=== PATIENT | male | born 1980 | race Caucasian/White ===

== ENCOUNTER 2019-06-07 11:10 | Emergency (ER) | payer SELFPAY ==
[2019-06-07] MEDS ORDERED: TORAdol 30 mg Injection IM ONE (11:31)
--- NOTE | 2019-06-07 11:31 | ERPHSYRPT ---
- History of Present Illness Time Seen by Provider: 06/07/19 11:28 Source: patient Exam Limitations: no limitations Patient Subjective Stated Complaint: pt here for right knee pain after twisitn it while going down stairs on saturday, Triage Nursing Assessment: pt alert, resp easy, skin w/d/p. no swelling or bruising noted ,was able to walk on leg Physician History: pt here for right knee pain after twisitn it while going down stairs on Saturday, Method of Injury: other (missed step) Occurred: last week Quality: constant Lower Extremities Pain: knee: right Modifying Factors: Improves With: cold therapy Associated Symptoms: none Allergies/Adverse Reactions: Penicillins Allergy (Verified 06/07/19 11:23) Hx Tetanus, Diphtheria Vaccination/Date Given: Yes Hx Influenza Vaccination/Date Given: No Hx Pneumococcal Vaccination/Date Given: No Immunizations Up to Date: No - Review of Systems Constitutional: No Symptoms Eyes: No Symptoms Ears, Nose, & Throat: No Symptoms Respiratory: No Symptoms Cardiac: No Symptoms Musculoskeletal: Fall, Joint Pain (right knee), No Deformity - Past Medical History Pertinent Past Medical History: Yes Cardiac History: Arrhythmia Musculoskeletal History: Other GI Medical History: Hepatitis Other Medical History: torn ligament left knee - Past Surgical History Past Surgical History: Yes Other Surgical History: tubes in ears, t&a - Social History Smoking Status: Current every day smoker How long have you smoked: 18 Exposure to second hand smoke: Yes Drug Use: none Patient Lives Alone: No - Nursing Vital Signs Nursing Vital Signs: Initial Vital Signs Temperature 97.2 F 06/07/19 11:15 Pulse Rate 102 H 06/07/19 11:15 Respiratory Rate 16 06/07/19 11:15 Blood Pressure 144/84 06/07/19 11:15 O2 Sat by Pulse Oximetry 96 06/07/19 11:15 Pain Scale Pain Intensity 6 - Physical Exam General Appearance: no apparent distress Eyes, Ears, Nose, Throat Exam: normal ENT inspection Neck Exam: normal inspection Legs Exam: bilateral leg: non-tender, normal inspection Knees Exam: right knee: bone tenderness, soft tissue tenderness, left knee: non- tender, normal inspection, normal range of motion, no evidence of injury SpO2: 96 - Course Nursing assessment & vital signs reviewed: Yes - Radiology Exams Knee X-ray Interpretation: Reviewed by me, Negative, No Fracture, No Subluxation Ordered Tests: Active Orders 24 hr Category Date Time Status KNEE (3 VIEWS) Stat Exams 06/07/19 11:27 Ordered Medication Summary Discontinued Medications Generic Name Dose Route Start Last Admin Trade Name Josh PRN Reason Stop Dose Admin Ketorolac Tromethamine 60 mg 06/07/19 11:31 06/07/19 11:34 Toradol 30 Mg Injection IM 06/07/19 11:32 60 mg STAT ONE Administration Ketorolac Tromethamine Confirm 06/07/19 11:33 Toradol 30 Mg Injection Administered 06/07/19 11:34 Dose 60 mg .ROUTE .STK-MED ONE - Progress Progress: improved, pain not gone completely Counseled pt/family regarding: diagnosis, need for follow-up, rad results - Departure Departure Disposition: Home Clinical Impression: Right knee pain Qualifiers: Chronicity: acute Qualified Code(s): M25.561 - Pain in right knee Condition: Stable Critical Care Time: No Referrals: DOCTOR,NO FAMILY [Primary Care Provider] - Instructions: Knee Pain (DC) Additional Instructions: SPRAINS/STRAINS/CONTUSIONS 1. Rest the affected area as much as possible for the next few days. 2. Apply ice to the affected area for 20-30 minutes at a time, several times a day. 3. If you receive an elastic wrap, wear it only while awake for comfort and support. Re-wrap the elastic wrap if it feels too tight or too loose. 4. If swelling is present, elevate the affected part above the level of the heart for at least 2 to 3 days. 5. Use splints, slings, or crutches as instructed. 6. Watch for severe swelling, coldness, numbness, and discoloration of the fingers and toes. See your family physician or return to the emergency department if any of these are noted. NABEEL VELASQUEZ was seen on 06/07/19 n the Emergency Room. At that time you were treated for an emergent condition, during your visit Laboratory, Radiology and/or other procedures may have been ordered. It is very important that you follow-up with your Primary Care Physician NO FAMILY DOCTOR within the next 24-48 hours to review your Emergency Room visit and the final results of testing that was ordered. Some test results such as Urine Cultures, Blood Cultures, and other cultures if ordered will not be finalized for 24-48 hours. If you do not have a Primary Care Provider please call the medical records department at [phone] ext [phone] to obtain a copy of your results or you may sign into our patient portal to obtain these results by visiting us @ [email or web address] and completing the following steps: 1. Click on the Patient Portal link 2. Click the Patient Self Enrollment Link to complete the enrollment form and entering your 3. Once the enrollment form is completed you will receive an email with a temporary ID and password at the email address you provided. 4. Next choose a user name and password. Your user name must be at least 4 characters long and your password must be at least 4 characters long. 5. Choose a security question from the list and provide your answer to the question. If you already have signed into the Health Portal you may access your Health Care Information 18/03 by the following steps: 1. Login to our website @ [email or web address] 2. Enter your original user name and password. FAQS The [facility] Health Portal is an online tool that contains your Lab Results, Radiology Reports, Visit History, Discharge Instructions and Health Summary Lab and Radiology Results will not be available for 72 hours on the portal. The Portal is a secure site, passwords are encryted and URLs are re-written so they cannot be copied and pasted. You and authorized family members are the only ones who can access your Portal. Also there is a timeout feature that protects your information if you leave the Portal page open. If you have technical difficulty please use the Contact Us link on the page this will allow you to submit any questions you have regarding the Portal or you may contact the Medical Record Department at [phone] ext [phone]. Discharge/Care Plan NABEEL VELASQUEZ was seen on 06/07/19 in the Emergency Room. The patient was counseled regarding Diagnosis,Lab results, Imaging studies, need for follow up and when to return to the Emergency Room. Prescriptions given: Discharge Note I have spoken with the patient and/or caregivers. I have explained the patient' s condition, diagnosis and treatment plan based on the information available to me at this time. I have answered the patient's and/or caregiver's questions and addressed any concerns. The patient and/or caregivers have as good understanding of the patient's diagnosis, condition and treatment plan as can be expected at this point. The vital signs have been stable. The patient's condition is stable and appropriate for discharge from the emergency department. The patient will pursue further outpatient evaluation with the primary care physician or other designated or consulting physician as outlined in the discharge instructions. The patient and/or caregivers are agreeable to this plan of care and follow-up instructions have been explained in detail. The patient and/or caregivers have received these instruction. The patient/and or caregivers are aware that any significant change in condition or worsening of symptoms should prompt an immediate return to this or the closest emergency department or call 911. Prescriptions: Naproxen 375 mg [Naprosyn 375 mg] 375 mg PO Q8H #30 tablet
[2019-06-07] MEDS ORDERED: TORAdol 30 mg Injection ONE (11:33)
[2019-06-07 12:30] VITALS: BP 128/87; PULSE 70; O2SAT 98
--- NOTE | 2019-06-07 20:54 | XRAY ---
Indication: Pain following injury one week ago. Comparison: None 3 views of the right knee demonstrates small nonspecific suprapatellar effusion. No other bony, articular, or soft tissue abnormalities.
== END 2019-06-07 12:30 | disposition home or self-care (01) ==
LOC: ED 11:10
DX: M25.561 Pain in right knee (principal); X50.1XXA Overexertion from prolonged static or awkward postures, initial encounter; Y93.89 Activity, other specified; Y92.89 Other specified places as the place of occurrence of the external cause; K75.9 Inflammatory liver disease, unspecified
CPT/HCPCS: 73562; 96372; 99284; J1885

== ENCOUNTER 2019-07-15 08:46 | Emergency (ER) | payer SELFPAY ==
[2019-07-15] MEDS ORDERED: TORAdol 30 mg Injection IM ONE (09:10)
--- NOTE | 2019-07-15 09:17 | ERPHSYRPT ---
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 Triage Nursing Assessment: pt arrives p/w/d resp easy a@ox3 states pain of 8 to left lebow at all times pt cmpts wnl Physician History: 39 years old generally healthy male presented in the ER the chief complaint of LEFT ELBOW PAIN INTERMITTENTLY FOR ONE MONTH. Patient REPORTS LIFTING HEAVY PIECES OF WOOD REPEATEDLY AND HEARD A POPPING SOUND ALMOST A MONTH AGO AND SINCE THEN IS HAVING DULL ACHING SHARP PAIN OF MODERATE INTENSITY BUT MOVEMENTS OF THE ELBOW AND BETTER WITH RESTING. hE HAS NOT BEEN USING HIS LEFT ARM THAT FREQUENTLY SINCE THEN. tODAY HE WAS TAKING OUT DOWN A METAL FROM THE REFRIGERATOR AND BECAUSE OF PAIN DROPPED IT. dENIES ANY SWELLING IN THE ELBOW OR DIRECT TRAUMA. pAIN RADIATES TO UPPER FOREARM FROM ELBOW BUT HAS NO WEAKNESS IN THE HAND/ARM. nO NUMBNESS IN THE HAND. Quality: intermittent Severity of Pain-Max: moderate Severity of Pain-Current: moderate Extremities Pain Location: elbow: left Modifying Factors: Improves With: movement Allergies/Adverse Reactions: Penicillins Allergy (Verified 07/15/19 09:01) Home Medications: Famotidine 20 mg [Pepcid 20 MG] 20 mg PO DAILY 07/15/19 [History] Hx Tetanus, Diphtheria Vaccination/Date Given: Yes Hx Influenza Vaccination/Date Given: No Hx Pneumococcal Vaccination/Date Given: No - Review of Systems Constitutional: No Symptoms Ears, Nose, & Throat: No Symptoms Respiratory: No Symptoms Cardiac: No Symptoms Abdominal/Gastrointestinal: No Symptoms Genitourinary Symptoms: No Symptoms Neurological: No Symptoms Endocrine: No Symptoms Hematologic/Lymphatic: No Symptoms - Past Medical History Pertinent Past Medical History: Yes Cardiac History: Arrhythmia Musculoskeletal History: Other GI Medical History: Hepatitis Other Medical History: torn ligament left knee - Past Surgical History Past Surgical History: Yes Other Surgical History: tubes in ears, t&a - Social History Smoking Status: Current every day smoker How long have you smoked: 18 Exposure to second hand smoke: Yes Drug Use: none Patient Lives Alone: No - Nursing Vital Signs Nursing Vital Signs: Initial Vital Signs Temperature 98.5 F 07/15/19 08:54 Pulse Rate 81 07/15/19 08:54 Respiratory Rate 18 07/15/19 08:54 Blood Pressure 127/69 07/15/19 08:54 O2 Sat by Pulse Oximetry 97 07/15/19 08:54 Pain Scale Pain Intensity 8 - Physical Exam General Appearance: no apparent distress Eyes, Ears, Nose, Throat Exam: normal ENT inspection Neck Exam: normal inspection, non-tender, supple, full range of motion Cardiovascular/Respiratory Exam: chest non-tender, normal breath sounds, regular rate/rhythm Back Exam: normal inspection, normal range of motion Shoulder Exam: normal inspection, non-tender, no evidence of injury Elbow/Forearm Exam: normal inspection, no evidence of injury, normal ROM, bone tenderness (at olecranon area left elbow ), pain, No swelling Wrist Exam: normal inspection, non-tender, no evidence of injury, normal ROM Hand Exam: normal inspection, non-tender, no evidence of injury, normal ROM DTR - Upper Extremity Exam: bicep (R): 2+, bicep (L): 2+, tricep (R): 2+, tricep (L): 2+ Neuro/Tendon Exam: normal sensation, normal motor functions, normal tendon functions Mental Status Exam: alert, oriented x 3, cooperative Skin Exam: normal color SpO2 Interpretation: normal SpO2: 97 O2 Delivery: Room Air - Course Nursing assessment & vital signs reviewed: Yes Ordered Tests: Active Orders 24 hr Category Date Time Status ELBOW (MINIMUM 3 VIEWS) Stat Exams 07/15/19 09:27 Completed Medication Summary Discontinued Medications Generic Name Dose Route Start Last Admin Trade Name Josh PRN Reason Stop Dose Admin Ketorolac Tromethamine 30 mg 07/15/19 09:10 07/15/19 09:23 Toradol 30 Mg Injection IM 07/15/19 09:11 30 mg STAT ONE Administration Ketorolac Tromethamine Confirm 07/15/19 09:19 Toradol 30 Mg Injection Administered 07/15/19 09:20 Dose 30 mg .ROUTE .STK-MED ONE - Progress Progress: improved Progress Note: he is given Toradol, and evaluation pain is better. X-rays negative for fracture dislocation. I believe the patient has tennis elbow because of repeated use.I will start him on diclofenac and have him followup operation with primary care and also it does not feel much improvement in 2 weeks' time. 07/15/19 10:28 Counseled pt/family regarding: diagnosis, need for follow-up, rad results - Departure Departure Disposition: Home Clinical Impression: Left tennis elbow Condition: Stable Critical Care Time: No Referrals: DOCTOR,NO FAMILY [Primary Care Provider] - JUDSON MUNSON DO [ACTIVE STAFF] - Follow Up with PCP/3 days Instructions: Elbow Sprain (DC) Additional Instructions: take Tylenol/diclofenac as needed. Followup with primary care for reevaluation. If do not feel any improvement you may need referral for Ortho. Return to the ER for any worsening. Prescriptions: Diclofenac Sodium 75 mg PO BIDPRN PRN #30 tablet.dr DUARTE Reason: Pain
[2019-07-15] MEDS ORDERED: TORAdol 30 mg Injection ONE (09:19)
--- NOTE | 2019-07-15 09:59 | XRAY ---
Indication: Pain following injury 2 weeks ago. Comparison: None 3 views of the left elbow obtained. No bony, articular, or soft tissue abnormalities.
[2019-07-15 10:46] VITALS: BP 100/68; PULSE 72; O2SAT 98
== END 2019-07-15 10:49 | disposition home or self-care (01) ==
LOC: ED 08:46
DX: M77.12 Lateral epicondylitis, left elbow (principal); X50.3XXA Overexertion from repetitive movements, initial encounter
CPT/HCPCS: 73080; 96372; 99284; J1885

== ENCOUNTER 2019-10-01 15:07 | Emergency (ER) | payer OTHER ==
[2019-10-01] MEDS ORDERED: TYLENOL 325 MG PO ONE (15:36)
[2019-10-01] MEDS ORDERED: TYLENOL 325 MG ONE (15:41)
--- NOTE | 2019-10-01 15:59 | ERPHSYRPT ---
- History of Present Illness Time Seen by Provider: 10/01/19 15:30 Source: patient, rehabilitation caseworker Exam Limitations: no limitations Patient Subjective Stated Complaint: states a big piece of metal fell on his head at work just prior to arrival in er. denies loc Triage Nursing Assessment: amublated to room per self. skin w/d, color normal. has 1cm v-shape lac to top of head left side with minimal bleeding at this time. Physician History: Patient is a 39-year-old male presents to our ED for evaluation status post head injury. Patient was at work when he says a metal object fell from an elevated surface and landed onto the back of his head. Patient immediately began to bleed. No loss of consciousness. He was not wearing a hard hat. Injury occurred prior to arrival. Patient denies neck pain. No numbness tingling or weakness. No blurred vision. No nausea or vomiting. No other injuries. Patient ambulatory. He voices no other complaints at this time. Patient is not on blood thinners. Occurred: just prior to arrival Severity: moderate Head Injury Location: parietal (Posterior parietal) Method of Injury: direct blow Loss of Consciousness: no loss of consciousness Associated Symptoms: No nausea, No vomiting, No diaphoresis, No chest pain Allergies/Adverse Reactions: Penicillins Allergy (Verified 10/01/19 15:16) Home Medications: Famotidine 20 mg [Pepcid 20 MG] 20 mg PO DAILY 07/15/19 [History] Hx Tetanus, Diphtheria Vaccination/Date Given: No Hx Influenza Vaccination/Date Given: No Hx Pneumococcal Vaccination/Date Given: No - Review of Systems Constitutional: No Fever, No Chills Eyes: No Symptoms Ears, Nose, & Throat: No Symptoms Respiratory: No Symptoms, No Cough, No Dyspnea Cardiac: No Symptoms, No Chest Pain, No Edema, No Syncope Abdominal/Gastrointestinal: No Symptoms, No Abdominal Pain, No Nausea, No Vomiting, No Diarrhea Genitourinary Symptoms: No Symptoms, No Dysuria Musculoskeletal: No Symptoms, No Back Pain, No Neck Pain Skin: Other (There is a 0.5 cm laceration to the posterior occipital area of scalp.), No Rash Neurological: No Symptoms, No Dizziness, No Focal Weakness, No Lethargy, No Parasthesia, No Sensory Changes, No Speech Changes, No Vertigo Psychological: No Symptoms Endocrine: No Symptoms All Other Systems: Reviewed and Negative - Past Medical History Pertinent Past Medical History: Yes Cardiac History: Arrhythmia Musculoskeletal History: Other GI Medical History: Hepatitis Other Medical History: torn ligament left knee - Past Surgical History Past Surgical History: Yes Other Surgical History: tubes in ears - Social History Smoking Status: Current every day smoker How long have you smoked: 20 Exposure to second hand smoke: Yes Drug Use: none Patient Lives Alone: No - Nursing Vital Signs Nursing Vital Signs: Initial Vital Signs Temperature 97.2 F 10/01/19 15:12 Pulse Rate 91 H 10/01/19 15:12 Respiratory Rate 16 10/01/19 15:12 Blood Pressure 115/91 10/01/19 15:12 O2 Sat by Pulse Oximetry 96 10/01/19 15:12 Pain Scale Pain Intensity 0 - Bellona Coma Score Best Eye Response (Bellona): (4) open spontaneously Best Verbal Response (Michael): (5) oriented Best Motor Response (Bellona): (6) obeys commands Michael Total: 15 - Physical Exam General Appearance: no apparent distress, alert Head Injury: No no evidence of injury (There is an obvious 0.5 cm laceration of the posterior parietal area of scalp. No obvious depressed skull fracture. Neuro exam within normal limits.) Eye Exam: bilateral eye: PERRL, EOMI ENT Exam: airway nml Neck Exam: supple, full range of motion, normal inspection, No focal neuro deficit, No limited range of motion, No tenderness, No mid-line tenderness, No lymphadenopathy Cardiovascular/Respiratory Exam: chest non-tender, normal breath sounds, regular rate/rhythm Gastrointestinal/Abdominal Exam: soft, non tender, no distention Rectal Exam: deferred Back Exam: normal inspection, No vertebral tenderness Extremity Exam: non-tender, normal range of motion, normal inspection Mental Status Exam: alert, oriented x 3, 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 Exam: normal hearing, normal speech, PERRL, tongue midline, No abnormal eye position, No abnormal gag reflex, No abnormal pupil position, No abnormal speech , No facial asymmetry, No facial droop, No facial paresthesias, No facial weakness, No hearing deficit (R), No hearing deficit (L) Coordination/Gait Exam: normal finger to nose Motor/Sensory Exam: no motor deficit, no sensory deficit, CN II-XII intact Skin Exam: normal color, warm, dry, No rash SpO2 Interpretation: normal SpO2: 96 O2 Delivery: Room Air Procedures - Laceration/Wound Repair scalp Wound Location: head Wound Length (cm): 0.5 Wound's Depth, Shape: superficial Wound Explored: clean (No foreign body) Irrigated: Yes Hibiclens Prep: Yes Anesthesia: local (No anesthesia. Patient declined preferred just place staple without local.) Wound Debrided: No debridement necessary. Wound Repaired With: Chelsie (1 staple applied.) Sterile Dressing Applied?: Yes Splint Applied?: No Progress: 10/01/19 16:36 Patient reassessed. He feels well. Patient tolerated procedure well. Repeat neuro exam within normal limits. Patient requesting discharge and a work note. - CT Exams Head CT Interpretation: Other (CT scan head negative for intracranial hemorrhage. There is a laceration and a scalp hematoma.) Ordered Tests: Active Orders 24 hr Category Date Time Status Wound Care STAT Care 10/01/19 15:19 Active HEAD WITHOUT CONTRAST [CT] Stat Exams 10/01/19 15:36 Completed Medication Summary Discontinued Medications Generic Name Dose Route Start Last Admin Trade Name Josh PRN Reason Stop Dose Admin Acetaminophen 975 mg 10/01/19 15:36 10/01/19 15:42 Tylenol 325 Mg PO 10/01/19 15:37 975 mg STAT ONE Administration Acetaminophen Confirm 10/01/19 15:41 Tylenol 325 Mg Administered 10/01/19 15:42 Dose 975 mg .ROUTE .STK-MED ONE - Progress Progress: improved Will see patient in: office Counseled pt/family regarding: diagnosis, need for follow-up, rad results - Departure Departure Disposition: Home Clinical Impression: Scalp laceration, Scalp hematoma, Concussion, Head injury Condition: Good Critical Care Time: No Referrals: DOCTOR,NO FAMILY [Primary Care Provider] - JONATHAN PETERSEN [ACTIVE STAFF] - Additional Instructions: Patient may return to work once cleared to do so by his primary care physician or workman's comp. Skin stable may be removed in 1 week. Discharge/Care Plan NABEEL VELASQUEZ was seen on 10/01/19 in the Emergency Room. The patient was counseled regarding Diagnosis,Lab results, Imaging studies, need for follow up and when to return to the Emergency Room. Prescriptions given: Discharge Note I have spoken with the patient and/or caregivers. I have explained the patient' s condition, diagnosis and treatment plan based on the information available to me at this time. I have answered the patient's and/or caregiver's questions and addressed any concerns. The patient and/or caregivers have as good understanding of the patient's diagnosis, condition and treatment plan as can be expected at this point. The vital signs have been stable. The patient's condition is stable and appropriate for discharge from the emergency department. The patient will pursue further outpatient evaluation with the primary care physician or other designated or consulting physician as outlined in the discharge instructions. The patient and/or caregivers are agreeable to this plan of care and follow-up instructions have been explained in detail. The patient and/or caregivers have received these instruction. The patient/and or caregivers are aware that any significant change in condition or worsening of symptoms should prompt an immediate return to this or the closest emergency department or call 911.
[2019-10-01 16:12] VITALS: PULSE 88
--- NOTE | 2019-10-01 16:24 | XRAY ---
Indication: Left head injury, contusion, and swelling. Multiple contiguous axial images obtained through the head without contrast. Comparison: August 09, 2008. Again normal appearing brain parenchyma, ventricles, and bony calvarium. Left vertex demonstrates new small focus scalp hematoma/laceration. Visualized paranasal sinuses and mastoid air cells are clear. Impression: Left vertex scalp hematoma/laceration. Remaining CT head without contrast exam is normal.
[2019-10-01] MEDS ORDERED: BACIGUENT PACKET ONE (16:35)
[2019-10-01] MEDS ORDERED: BACIGUENT PACKET TP ONE (16:35)
[2019-10-01 16:38] VITALS: O2SAT 96
[2019-10-01 16:39] VITALS: BP 124/85
== END 2019-10-01 16:47 | disposition home or self-care (01) ==
LOC: ED 15:07
DX: S01.01XA Laceration without foreign body of scalp, initial encounter (principal); W22.8XXA Striking against or struck by other objects, initial encounter; S06.0X0A Concussion without loss of consciousness, initial encounter; Y93.89 Activity, other specified; Y92.89 Other specified places as the place of occurrence of the external cause; Y99.0 Civilian activity done for income or pay
CPT/HCPCS: 12002; 70450; 99284; A9270-GY

== ENCOUNTER 2023-12-12 17:08 | Emergency (ER) | payer SELFPAY ==
[2023-12-12 17:18] VITALS: BP 178/102; PULSE 119; TEMP 96.9; O2SAT 98
[2023-12-12] MEDS ORDERED: BENADRYL 50 MG/ML ONE (17:24)
[2023-12-12] MEDS ORDERED: Sterile H2O 10 ml IJ ONE (17:24)
[2023-12-12] MEDS ORDERED: solu-MEDROL ONE (17:24)
[2023-12-12] MEDS: solu-MEDROL 125 MG, Sterile H2O 10 ml 2 ML IM ONE (17:28)
[2023-12-12] MEDS: BENADRYL 50 MG/ML IM ONE (17:28)
--- NOTE | 2023-12-12 18:00 | ERPHSYRPT ---
- History of Present Illness Time Seen by Provider: 12/12/23 17:09 Source: patient Exam Limitations: no limitations Patient Subjective Stated Complaint: Pt was mushroom hunting when his left hand began swelling up, pt thinks he got bit by a brown recluse but there is not a bite spot noted Triage Nursing Assessment: Pt was brought to the ER by his neighbor, hypertensive, tachycardic, rates pain as 3/10 in his left hand while he isn't moving it, pt was in the [employer], pulses normal, skin n/w/d, doesn't appear to be in any distress Physician History: 43 years old right-handed dominant male presented in the ER with complains of left hand dorsum swelling and pain noticed prior to arrival after he was in the [employer]. Patient does not remember any bite or trauma. Complaining of mild to moderate dull aching pain which gets worse with flexion at the metacarpophalangeal joints and at rest. No redness. No numbness or tingling in the fingertips. Allergies/Adverse Reactions: Penicillins Allergy (Verified 12/12/23 17:18) Home Medications: Famotidine 20 mg [Pepcid 20 MG] 20 mg PO DAILY PRN 07/15/19 [History] Hx Tetanus, Diphtheria Vaccination/Date Given: No Hx Influenza Vaccination/Date Given: No Hx Pneumococcal Vaccination/Date Given: No Travel Risk - International Travel Have you traveled outside of the country in past 3 weeks: No - Emerging Infectious Disease Are you exhibiting symptoms associated with any current EIDs: No - Review of Systems Constitutional: No Symptoms Ears, Nose, & Throat: No Symptoms Respiratory: No Symptoms Cardiac: No Symptoms Abdominal/Gastrointestinal: No Symptoms Genitourinary Symptoms: No Symptoms Musculoskeletal: Joint Swelling Neurological: No Symptoms Endocrine: No Symptoms - Past Medical History Pertinent Past Medical History: Yes Cardiac History: Arrhythmia Musculoskeletal History: Other GI Medical History: Hepatitis Other Medical History: torn ligament left knee - Past Surgical History Past Surgical History: Yes Other Surgical History: tubes in ears - Social History Smoking Status: Current every day smoker How long have you smoked: 20 Exposure to second hand smoke: Yes Drug Use: marijuana, methamphetamines Patient Lives Alone: No - Nursing Vital Signs Nursing Vital Signs: Initial Vital Signs Temperature 96.9 F 12/12/23 17:11 Pulse Rate 119 H 12/12/23 17:11 Blood Pressure 178/102 12/12/23 17:11 O2 Sat by Pulse Oximetry 98 12/12/23 17:11 Pain Scale Pain Intensity 3 - Physical Exam General Appearance: no apparent distress, alert Neck Exam: normal inspection, full range of motion Cardiovascular/Respiratory Exam: normal breath sounds, regular rate/rhythm, tachycardia Wrist Exam: normal inspection, non-tender, no evidence of injury, normal ROM Hand Exam: swelling (Diffuse swelling dorsum of hand more on the proximal area, soft to firm, minimal tenderness. Minimal increase in temperature. Distal neurovascular intact.) Neuro/Tendon Exam: normal sensation, normal motor functions Mental Status Exam: alert, oriented x 3, cooperative SpO2 Interpretation: normal SpO2: 98 O2 Delivery: Room Air Ordered Tests: Active Orders 24 hr Category Date Time Status HAND (MINIMUM 3 VIEWS) Stat Exams 12/12/23 17:21 Taken Medication Summary Discontinued Medications Generic Name Dose Route Start Last Admin Trade Name Freq PRN Reason Stop Dose Admin Methylprednisolone Sodium 0 mg 12/12/23 17:19 12/12/23 17:28 Succinate 125 mg/ Sterile IM 12/12/23 17:20 125 mg Water 2 ml STAT ONE Administration Diphenhydramine HCl 50 mg 12/12/23 17:21 12/12/23 17:28 Diphenhydramine Hcl 50 Mg/Ml Vial IM 12/12/23 17:22 50 mg STAT ONE Administration Diphenhydramine HCl Confirm 12/12/23 17:24 Diphenhydramine Hcl 50 Mg/Ml Vial Administered 12/12/23 17:25 Dose 50 mg .ROUTE .STK-MED ONE Diphtheria/Tetanus/Acell Pertussis 0.5 ml 12/12/23 18:30 Tdap --Diph,Pertuss(Acell),Tet Vac/Pf 0.5 Ml Vial IM 12/12/23 18:31 .ONCE ONE Methylprednisolone Sodium Succinate Confirm 12/12/23 17:24 Methylprednis Sod Succ 125 Mg/2 Ml Vial Administered 12/12/23 17:25 Dose 125 mg .ROUTE .STK-MED ONE Sterile Water Confirm 12/12/23 17:24 Water For Injection,Sterile 10 Ml Vial Administered 12/12/23 17:25 Dose 10 ml IJ .STK-MED ONE - Progress Progress: improved, re-examined Progress Note: 12/12/23 18:32 43 years old is evaluated in the ER for left hand swelling with no known trauma or bite but patient was in the [place] and this started afterwards. Patient has minimal tenderness and diffuse swelling dorsum of hand. No significant bony tenderness. Did obtain x-rays which are negative for fracture dislocation reviewed by me, official report is pending. He is given steroids and Benadryl, on reevaluation he is feeling better. Before I could discuss the results of imaging and patient could have received tetanus shot he decided to leave as his was in there and was not willing to wait to talk to me as I was in a different room. Before I was out patient signed AMA with RN and walked out of the ER in stable condition. I believe patient had some kind of insect bite. Counseled pt/family regarding: diagnosis, need for follow-up, rad results Medical Desision Making - Diagnostic Testing Diagnostic test were ordered, analyzed, and reviewed by me: Yes Radiological Interpretation: Interpreted by me, Reviewed by me - Risk of complications The pt has a mod risk of morbidity or mortality based on: Need for prescription drug management - Departure Departure Disposition: AMA Clinical Impression: Swelling of hand, Insect bite Condition: Stable Critical Care Time: No
[2023-12-12] MEDS: Adacel Vial IM ONE (18:35)
--- NOTE | 2023-12-13 08:50 | XRAY ---
Indication: Swelling. Comparison: None 3 view left hand obtained. No bony, articular, or soft tissue abnormalities.
== END 2023-12-12 18:30 | disposition left against medical advice (07) ==
LOC: ED 17:08
DX: S60.562A Insect bite (nonvenomous) of left hand, initial encounter (principal); M79.642 Pain in left hand; M79.89 Other specified soft tissue disorders
CPT/HCPCS: 73130; 96372; 99283; J1200; J2919